=== PATIENT | female | born 1970 | race Caucasian/White ===

== ENCOUNTER 2016-06-12 16:48 | Emergency (ER) | payer MEDICAID ==
[2016-06-12] MEDS ORDERED: SODIUM CHLORIDE 0.9% 1,000 ML IV ONE (17:14)
[2016-06-12] MEDS ORDERED: ONDANSETRON 4 MG/2 ML VIAL IVP STA (17:14)
[2016-06-12] MEDS ORDERED: ONDANSETRON 4 MG/2 ML VIAL ONE (17:17)
[2016-06-12] MEDS ORDERED: PROMETHAZINE INJ 12.5 MG in SODIUM CHLORIDE 0.9% 50 ML IV STA (18:28)
[2016-06-12] MEDS ORDERED: KETOROLAC 60 MG/2 ML VIAL IVP STA (18:28)
[2016-06-12] MEDS ORDERED: PROMETHAZINE 25 MG/1 ML VIAL ONE (18:44)
[2016-06-12] MEDS ORDERED: KETOROLAC 30 MG/ML VIAL ONE (18:44)
== END 2016-06-12 19:25 | disposition home or self-care (01) ==
DX: S06.0X0A Concussion without loss of consciousness, initial encounter (principal); W01.0XXA Fall on same level from slipping, tripping and stumbling without subsequent striking against object, initial encounter; Y92.481 Parking lot as the place of occurrence of the external cause; S93.402A Sprain of unspecified ligament of left ankle, initial encounter; M50.322 Other cervical disc degeneration at C5-C6 level